=== PATIENT | male | born 1980 | race American Indian/Alaskan Native ===

== ENCOUNTER 2021-06-25 14:52 | Emergency (ER) | payer SELFPAY ==
[2021-06-25 15:53] VITALS: BP 135/83
--- NOTE | 2021-06-25 19:40 | Event Note ---
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 cables and then began to feel lightheaded He states he had a brief episode of syncope He denies any complaints currently and denies any pains He denies any chest pain, shortness of breath, leg swelling, hemoptysis, nausea, vomiting, diarrhea, numbness, weakness, vision changes, speech disturbance, gait disturbance, dizziness Denies this ever happening in the past EKG is within normal limits Cranial nerves II through XII intact, no facial asymmetry, no pronator drift, normal [id number], normal [id number], sensation intact throughout, normal gait, 5 out of 5 muscle strength in the bilateral extremities and lower extremities, 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 Further treatment and workup at subsequent clinical providers discretion. Patient/guardian urged not to elope from the ED as their condition may be serious if not clinically assessed and managed. Initial orders include: Labs, CT
[2021-06-25 20:09] LABS: Basophils # (Auto) 0.2 K/mm3 (0.0-0.1); Basophils % (Auto) 1.8 % (0.0-1.8); Hemoglobin 15.6 gm/dl (11.8-15.2); Lymphocytes # (Auto) 1.9 K/mm3 (1.2-5.4); Mean Corpuscular HGB Conc 34 % (32-34); Mean Corpuscular Volume 80 fl (84-94); Monocytes # (Auto) 0.4 K/mm3 (0.0-0.8); Monocytes % (Auto) 4.8 % (0.0-7.3); Platelet Count 182 K/mm3 (140-440); Red Blood Count 5.78 M/mm3 (3.65-5.03); Red Cell Distribution Width 14.3 % (13.2-15.2)
[2021-06-25 20:31] LABS: Alanine Aminotransferase 18 units/L (7-56); Albumin 4.2 g/dL (3.9-5); BUN/Creatinine Ratio 9; Blood Urea Nitrogen 12 mg/dL (9-20); Calcium 8.8 mg/dL (8.4-10.2); Hemolysis Index 9
--- NOTE | 2021-06-25 21:24 | Cat Scan Report ---
CT HEAD WITHOUT CONTRAST INDICATION / CLINICAL INFORMATION: syncope. TECHNIQUE: All CT scans at this location are performed using CT dose reduction for ALARA by means of automated exposure control. COMPARISON: None available. FINDINGS: BRAIN PARENCHYMA: No acute intracranial hemorrhage. No evidence of recent infarct. No mass effect or midline shift. VENTRICULAR SYSTEM/EXTRA-AXIAL SPACES: Ventricles are normal for age. No extra-axial fluid collection . ORBITS: Normal as visualized. SKELETAL SYSTEM/SOFT TISSUES: Normal bones and soft tissues. PARANASAL SINUSES/MASTOID AIR CELLS: No significant abnormality. ADDITIONAL FINDINGS: None. IMPRESSION: 1. No acute intracranial abnormality. Signer Name: Nilo Vitale MD Signed: 06/25/2021 9:20 PM Workstation Name: [id number]
--- NOTE | 2021-06-26 00:21 | Emergency Department Report ---
ED General Adult HPI - General Chief complaint: Syncope Stated complaint: I felt lightheaded PUI?: No Time Seen by Provider: 06/25/21 19:38 Source: patient, RN notes reviewed Mode of arrival: Ambulatory Limitations: No Limitations - History of Present Illness Initial comments: The patient was evaluated in the emergency department for symptoms described in the history of present illness. He/she was evaluated in the context of the global COVID-19 pandemic, which necessitated consideration that the patient might be at risk for infection with the virus that causes COVID-19. Institutional protocols and algorithms that pertain to the evaluation of patients at risk for COVID-19 are in a state of rapid change based on informat ion released by regulatory bodies including the CDC and federal and state organizations. These policies and algorithms were followed during the patient's care in the emergency department. Please note that these policies, procedures and recommendations changed on a rapid basis. This is a 41-year-old gentleman. He is not known to myself previously. He is not COVID-19 vaccinated. He has a resolved history of tobacco consumption. The patient presents to the ER today with a complaint of lightheadedness at work, and feeling like he may have passed out or lost consciousness. The patient states he does not take prescription medications, denies toxic/recreational drug use. He reports that he did not have breakfast or lunch this morning and afternoon, and reports that he was at work. 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 This was not accompanied by headache, neck pain, chest pain, abdominal pain or shortness of breath. The patient reports that he felt lightheaded, thinks he may have lost consciousness but is not certain, and reports that a coworker "caught me." This episode lasted for a few seconds. The patient now states he is at his baseline for the past few hours. The patient denies all physical pain at this time. He denies travel, surgery, immobilization, leg pain and leg swelling. He denies personal/family history of DVT, pulmonary embolism risk factors, and he also reports no significant family medical history. He denies hematemesis and bright red blood per rectum. He denies loss of taste and smell. He has since eaten since the event, and he reports that he feels much improved. -: Sudden Consistency: now resolved Improves with: eating Worsens with: none Associated Symptoms: denies other symptoms - Related Data Allergies Allergy/AdvReac Type Severity Reaction Status Date / Time No Known Allergies Allergy Verified 06/25/21 15:53 ED Review of Systems ROS: Stated complaint: PASSED OUT Other details as noted in HPI Constitutional: weakness, other (Denies loss of taste and smell). denies: fever Eyes: denies: eye discharge, vision change ENT: denies: epistaxis Respiratory: denies: cough Cardiovascular: syncope. denies: chest pain Gastrointestinal: denies: abdominal pain, vomiting, hematemesis, melena, hematochezia Neurological: weakness (Generalized weakness preceding the event). denies: as per HPI Psychiatric: anxiety Hematological/Lymphatic: denies: easy bleeding ED Physical Exam - General Limitations: No Limitations General appearance: alert, in no apparent distress - Head Head exam: Present: atraumatic, normocephalic - Eye Eye exam: Present: normal appearance, PERRL, EOMI, other (Visual acuity intact to finger counting, color perception, reading at a close distance). Absent: nystagmus - ENT ENT exam: Present: normal exam, normal orophraynx, mucous membranes moist, normal external ear exam - Neck Neck exam: Present: normal inspection, full ROM. Absent: tenderness, meningismus - Respiratory Respiratory exam: Present: normal lung sounds bilaterally. Absent: respiratory distress, wheezes, rhonchi, stridor, decreased breath sounds - Cardiovascular Cardiovascular Exam: Present: regular rate, normal rhythm, normal heart sounds. Absent: bradycardia, tachycardia, irregular rhythm, systolic murmur, diastolic murmur, rubs, gallop - GI/Abdominal GI/Abdominal exam: Present: soft. Absent: distended, tenderness, guarding, rebound, rigid, pulsatile mass - Rectal Rectal exam: Present: deferred - Extremities Exam Extremities exam: Present: normal inspection, full ROM, other (2+ pulses noted in the bilateral upper and lower extremities. There is no palpable cord. negative Homans sign. Muscular compartments are soft. The pelvis is stable.). Absent: pedal edema, calf tenderness - Back Exam Back exam: Present: normal inspection. Absent: tenderness, CVA tenderness (R), CVA tenderness (L), paraspinal tenderness, vertebral tenderness - Neurological Exam Neurological exam: Present: alert, oriented X3, normal gait, other (There is no facial droop. The tongue is midline. Extraocular movements are intact bilaterally. There is 5 out of 5 strength in bilateral upper and lower extremities. Sensation is intact to light touch bilateral upper and lower extremities. There is no past-pointing. There is no pronator drift.). Absent: motor sensory deficit - Psychiatric Psychiatric exam: Present: anxious - Skin Skin exam: Present: warm, dry, intact, normal color. Absent: rash ED Course Vital Signs 06/25/21 15:52 Temperature 100 F H Pulse Rate 90 Respiratory 16 Rate Blood Pressure 135/83 [Left] O2 Sat by Pulse 100 Oximetry - Reevaluation(s) Reevaluation #1: 06/26/21 00:21 Differential diagnosis, including not limited to: Orthostasis, vagal event, dehydration, hypoglycemia Assessment and plan: 41-year-old gentleman, with an episode of syncope/near syncope, first-time event ever, in the context of not having breakfast or lunch, which then resolved after eating The patient has a GCS of 15, with an NIH score of 0, he is not currently tachycardic, tachypneic or hypoxic, he denies DVT and pulmonary embolism risk factors, he is low risk by Wells criteria for pulmonary embolism, and he is PERC negative. This patient has been observed in the ER for hours without clinical deterioration, or recurrent event. Laboratory studies were unremarkable, a noncontrast CT scan of the brain was ordered prior to my personal evaluation of this patient, and is negative for acute findings. The patient denies Covid symptomatology, and he is not hypoxic. EKG is reviewed and appreciated. There is nonspecific QRS morphology which lacy ears to be unusual in lead II, and may be an atypical presentation of WPW. However, MA interval is not excessively minimal. The EKG is transmitted to our consulting associate store manager, Dr. Najma Skinner He has reviewed the patient's EKG, and we extensively discussed the patient's history, physical, laboratory studies, imaging studies, clinical impression and overall plan of care. He advises that this EKG is very unlikely to be consistent with WPW, and further advises that outpatient follow-up closely with outpatient cardiology group is reasonable. I am in agreement with this plan. Counseled patient to make certain to eat at least 3-6 meals per day, and to not drive or operate motor vehicles for 6 months. Counseled patient that he may return to work, but that he should not drive or operate motor vehicles until cleared to do so by a primary care doctor or a associate store manager. Counseled patient to follow-up with a associate store manager within the next 3 to 5 days. Low-grade temperature reviewed and appreciated, however, the patient is asymptomatic. Patient has not received COVID-19 vaccination, and he denies Covid symptomatology. Counseled patient to consider excepting outpatient COVID-19 vaccination, and to have outpatient definitive Covid testing. Unfortunately, this hospital/emergency room does not have rapid Covid testing. All questions answered. Patient articulated understanding. The patient is low risk for major adverse cardiac event as per the heart score, as well as the [place] syncope rule. Return precautions are reviewed. 06/26/21 00:24 06/26/21 00:30 ED Medical Decision Making - Lab Data Result diagrams: 06/25/21 19:50 06/25/21 19:50 Vital Signs 06/25/21 15:52 Temperature 100 F H Pulse Rate 90 Respiratory 16 Rate Blood Pressure 135/83 [Left] O2 Sat by Pulse 100 Oximetry Lab Results 06/25/21 06/25/21 Range/Units 19:50 19:50 WBC 9.2 (4.5-11.0) K/mm3 RBC 5.78 H (3.65-5.03) M/mm3 Hgb 15.6 H (11.8-15.2) gm/dl Hct 46.0 H (35.5-45.6) % MCV 80 L (84-94) fl MCH 27 L (28-32) pg MCHC 34 (32-34) % RDW 14.3 (13.2-15.2) % Plt Count 182 (140-440) K/mm3 Lymph % (Auto) 21.0 (13.4-35.0) % [place] % (Auto) 4.8 (0.0-7.3) % Eos % (Auto) 0.0 (0.0-4.3) % Baso % (Auto) 1.8 (0.0-1.8) % Lymph # (Auto) 1.9 (1.2-5.4) K/mm3 [place] # (Auto) 0.4 (0.0-0.8) K/mm3 Eos # (Auto) 0.0 (0.0-0.4) K/mm3 Baso # (Auto) 0.2 H (0.0-0.1) K/mm3 Seg Neutrophils % 72.4 H (40.0-70.0) % Seg Neutrophils # 6.6 (1.8-7.7) K/mm3 Sodium 138 (137-145) mmol/L Potassium 4.2 (3.6-5.0) mmol/L Chloride 100.2 (98-107) mmol/L Carbon Dioxide 29 (22-30) mmol/L Anion Gap 13 mmol/L BUN 12 (9-20) mg/dL Creatinine 1.3 (0.8-1.3) mg/dL Estimated GFR > 60 ml/min BUN/Creatinine Ratio 9 % Glucose 129 H (75-100) mg/dL Calcium 8.8 (8.4-10.2) mg/dL Magnesium 2.30 (1.7-2.3) mg/dL Total Bilirubin 0.40 (0.1-1.2) mg/dL AST 24 (5-40) units/L ALT 18 (7-56) units/L Alkaline Phosphatase 66 (35-129) units/L Total Creatine Kinase 233 H (55-170) units/L Troponin T < 0.010 (0.00-0.029) ng/mL Total Protein 8.0 (6.3-8.2) g/dL Albumin 4.2 (3.9-5) g/dL Albumin/Globulin Ratio 1.1 % - EKG Data -: EKG Interpreted by Nd EKG shows normal: sinus rhythm Rate: normal - EKG Data When compared to previous EKG there are: previous EKG unavailable 06/26/21 00:13 EKG interpreted at 16: 01 Sinus rhythm, 85 bpm. Normal axis, normal intervals. High left ventricular voltage. No prior EKGs available for comparison. This EKG is not a STEMI. - Radiology Data Radiology results: pending, report reviewed, image reviewed Noncontrast CT scan of the brain is negative for acute findings Critical care attestation.: If time is entered above; I have spent that time in minutes in the direct care of this critically ill patient, excluding procedure time. ED Disposition Clinical Impression: History of syncope, COVID-19 vaccination not done Disposition: 01 HOME / SELF CARE / HOMELESS Is pt being admited?: No Does the pt Need Aspirin: No Condition: Good Instructions: Syncope Additional Instructions: Patient should not drive or operate motor vehicles for the next 6 months, or until cleared to do so by a primary care doctor or associate store manager. Recommend that patient follow-up with a associate store manager within the next 3 to 5 days. Patient has been given contact information for both [facility] heart cardiology, as well as [facility] cardiology. It does not matter who the patient calls or sees, but he should contact either 1 of these cardiology groups, let them know that he was seen in the emergency room, and that he should be closely followed up as an outpatient for history of loss of consciousness. We also recommend that the patient eat at least 4-5 small balanced meals on a daily basis. Recommend that patient consider outpatient COVID-19 vaccination. These return to the emergency room right away with new pain, worsened pain, migration of pain, projectile vomiting, change in mental status, confusion, inability to tolerate liquid feeds, recurrent loss of consciousness, or any new, worsened or different symptoms not present on the initial emergency room evaluation. [facility] - 3-5 Days [facility] [Provider Group] - 3-5 Days Forms: Work/School Release Form(ED) Heart Score - HEART Score History: Slightly suspicious EKG: Non-specific Age: < 45 Risk factors: No known risk factors Troponin: < normal limit HEART Score: 1 - EKG Read Time Time EKG Completed: 16:01 EKG Read Time: 16:01 - Critical Actions Critical Actions: 0-3 pts:0.9-1.7%risk of adverse cardiac event.Candidate for discharge
--- NOTE | 2021-06-27 09:45 | Electrocardiograph Report ---
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
== END 2021-06-26 01:49 | disposition home or self-care (01) ==
LOC: ED 14:52
DX: R42 Dizziness and giddiness (principal); Z28.9 Immunization not carried out for unspecified reason; Z87.898 Personal history of other specified conditions
CPT/HCPCS: 36415; 70450; 80053; 82550; 83735; 84484; 85025; 93005